=== PATIENT | female | born 1955 | race Caucasian/White ===

== ENCOUNTER 2025-05-14 08:50 | Day surgery (SDC) | payer MEDICARE ==
[2025-05-14] MEDS ORDERED: Sodium Chloride 0.9(Preservative Free) 10 ML IJ ONE (08:51)
[2025-05-14] MEDS ORDERED: methylPREDNISolone acetate IM ONE (08:51)
[2025-05-14] MEDS ORDERED: Lactated Ringers 1,000 ML IV ONE (09:00)
[2025-05-14] MEDS ORDERED: propofoL IV ONE (10:39)
--- NOTE | 2025-05-14 12:28 | XRAY ---
Indication: Caudal ELIZA. Intraoperative fluoroscopy provided for 13 seconds. 3 digital spot image submitted for interpretation demonstrates caudal needle tip projecting mid sacrum. Small amount of contrast injected for needle tip placement. Correlate with intraoperative findings/report.
--- NOTE | 2025-05-14 12:48 | XRAY ---
13 seconds of fluoroscopy was used in surgery for a caudal ELIZA.
== END 2025-05-14 11:10 | disposition home or self-care (01) ==
LOC: SDC-PAIN 08:50
PROVIDERS: ATTEND Psychiatry & Neurology Pain Medicine
DX: M54.16 Radiculopathy, lumbar region (principal)